=== PATIENT | female | born 1960 | race Caucasian/White ===

== ENCOUNTER 2017-11-03 18:14 | Emergency (ER) | payer OTHER ==
[~2017-11-03] VITALS: Ht 172.7 cm; Wt 71.5 kg
[2017-11-03 18:17] VITALS: TEMP 36.8; Ht 172.7 cm; Wt 71.5 kg
--- NOTE | 2017-11-03 18:53 | DIAGNOSTIC IMAGING REPORT ---
L ANKLE MIN 3 VIEWS ROUTINE CLINICAL HISTORY: L ankle injury COMPARISON: None. DISCUSSION: The bones and joint spaces appear intact. There is no evidence of fracture, dislocation or bony disease. There is no evidence for soft tissue swelling. IMPRESSION: Negative study. The above report was generated using voice recognition software. It may contain grammatical, syntax or spelling errors. Electronically signed by: Tom Ramos M.D. 11/03/2017 6:52 PM Dictated Date/Time: 11/03/2017 6:52 PM
[2017-11-03] MEDS ORDERED: CYAN100T PO (19:15)
[2017-11-03] MEDS ORDERED: MULT-513 PO (19:15)
[2017-11-03] MEDS ORDERED: KRIL1000 PO (19:15)
[2017-11-03] MEDS ORDERED: IBUP-1050 PO (19:15)
[2017-11-03] MEDS ORDERED: CALC-51 PO (19:15)
--- NOTE | 2017-11-03 19:27 | EMERGENCY ROOM VISIT NOTE ---
History First contact with patient: 18:22 Chief Complaint: ANKLE PAIN Stated Complaint: ANKLE INJURY History of Present Illness The patient is a 57 year old female who presents to the Emergency Room with complaints of persistent and worsening left ankle pain. The patient was walking down stairs in her home this morning she twisted the ankle and fell onto her knees. She denies any significant knee pain. She reports that the ankle pain has progressively worsened throughout the day with swelling. The patient has had multiple ankle sprains in her 30s, but has never had any chronic ankle instability or pain. She reports paresthesias of the foot and toes. She reports mild discomfort radiating into the distal leg. She denies any knee, hip or back pain. She rates her discomfort a 5 out of 10. Review of Systems 10 system review was performed and was negative except for pertinent positives and negatives as indicated in history of present illness Past Medical/Surgical History Medical Problems: (1) No significant past medical history Surgical Problems: (1) History of lumpectomy (2) History of tympanoplasty (3) History of wisdom tooth extraction Family History FH: cancer FH: hypertension FH: kidney disease Social History Smoking Status: Never Smoker Alcohol Use: occasionally Marital Status: single Housing Status: lives alone Occupation Status: employed Current/Historical Medications Scheduled Calcium Carbonate-Vitamin D (Calcium), 1 TAB PO DAILY Cyanocobalamin (Vitamin B-12), 1 TAB PO DAILY Ibuprofen (Advil), 200 MG PO PRN Krill Oil (Krill Oil), 1 CAP PO DAILY Multivitamins/Minerals (Mvi With Minerals), 1 TAB PO DAILY Physical Exam Vital Signs Date Time Temp Pulse Resp B/P (MAP) Pulse Ox O2 Delivery O2 Flow Rate FiO2 11/03/17 18:17 36.8 90 18 162/91 100 Room Air Physical Exam CONSTITUTIONAL: Healthy and well nourished. Alert and oriented X 3 with positive affect. HEENT: Normocephalic, atraumatic. Pupils equal, round and reactive. NECK: Full active range of motion without discomfort. MUSCULOSKELETAL: Examination of the left ankle shows mild lateral edema without ecchymosis or skin wounds. The patient has no tenderness over the deltoid ligament, calcaneus, Achilles tendon, dorsal midfoot or metatarsals. Pedal pulses are intact. INTEGUMENTARY: No rash or other significant dermatologic conditions noted. NEUROLOGIC: Left foot and toes are sensory intact. Medical Decision & Procedures ER Provider Diagnostic Interpretation: My interpretation of left ankle x-rays does not show any acute fractures, dislocation or ankle mortise asymmetry. Radiologist report is as follows: L ANKLE MIN 3 VIEWS ROUTINE CLINICAL HISTORY: L ankle injury COMPARISON: None. DISCUSSION: The bones and joint spaces appear intact. There is no evidence of fracture, dislocation or bony disease. There is no evidence for soft tissue swelling. IMPRESSION: Negative study. ED Course Patient history and physical exam were performed. Nurse's notes were reviewed. Vital signs were reviewed, showing an elevated blood pressure of 162/91. The patient refused any analgesics on initial exam. X-rays of the left ankle were normal. The patient was encouraged to intermittently apply ice and elevate ankle for swelling and pain. She was encouraged to perform range of motion exercises to prevent stiffness. Crutches were dispensed. The patient was encouraged to alternate ibuprofen and Tylenol as needed for pain. Follow-up with orthopedics if symptoms are not improving within the next week. The patient was happy with plan of care, voiced understanding of all discharge instructions, and rated her discomfort a 4 out of 10 at the conclusion of my exam. The patient was encouraged to follow-up with her PCP for blood pressure recheck. Medical Decision Medication Reconcilliation Current Medication List: was personally reviewed by me Blood Pressure Screening Patient's blood pressure: Elevated blood pressure Blood pressure disposition: Referred to PCP Impression Primary Impression: Left ankle sprain Additional Impression: Elevated blood pressure reading Departure Information Referrals Pauline Mix D.ODavina (PCP) Patient Instructions My [facility] Problem Qualifiers Primary Impression: Left ankle sprain Encounter type: initial encounter Involved ligament of ankle: unspecified ligament Qualified Codes: S93.402A - Sprain of unspecified ligament of left ankle, initial encounter
[2017-11-03 20:24] VITALS: BP 151/89; PULSE 81; O2SAT 98
== END 2017-11-03 20:21 | disposition home or self-care (01) ==
LOC: C.EDB 18:16 → C.EDD 20:21
DX: S93.402A Sprain of unspecified ligament of left ankle, initial encounter (principal); R03.0 Elevated blood-pressure reading, without diagnosis of hypertension; X50.1XXA Overexertion from prolonged static or awkward postures, initial encounter; W10.9XXA Fall (on) (from) unspecified stairs and steps, initial encounter; Y93.01 Activity, walking, marching and hiking; Y99.8 Other external cause status; Z98.818 Other dental procedure status; Z98.890 Other specified postprocedural states; Z82.49 Family history of ischemic heart disease and other diseases of the circulatory system